=== PATIENT | male | born 1935 | race Caucasian/White ===

== ENCOUNTER → 2016-08-02 | Outpatient (CLI) | payer MEDICARE, BC ==
[2016-08-02 12:53] LABS: ABSOLUTE BASOPHILS # (AUTO) 0.1 10^3/uL (0.0-0.2); ABSOLUTE LYMPHOCYTES (AUTO) 0.8 10^3/uL (0.5-4.7); ABSOLUTE MONOCYTES (AUTO) 0.4 10^3/uL (0.1-1.4); ABSOLUTE NEUT (AUTO) 5.9 10^3/uL (1.7-8.2); BASOPHILS % (AUTO) 0.8 % (0-2); EOSINOPHILS % (AUTO) 0.2 % (0-6); HEMATOCRIT 42.6 % (37.9-51.0); HEMOGLOBIN 14.4 g/dL (13.5-17.0); HGB HCT DIFFERENCE 0.6; LYMPHOCYTES % (AUTO) 11.5 % (13-45); MEAN CORPUSCULAR HGB CONC 33.9 g/dL (32.0-36.0); MEAN CORPUSCULAR VOLUME 97 fl (80-97); RED BLOOD COUNT 4.38 10^6/uL (4.35-5.55); RED CELL DISTRIBUTION WIDTH 12.7 % (11.5-14.0); SEGMENTED NEUTROPHILS % (AUTO) 81.5 % (42-78); WHITE BLOOD COUNT 7.2 10^3/uL (4.0-10.5)
[2016-08-02 13:09] LABS: ALANINE AMINOTRANSFERASE 23 U/L (21-72); ALBUMIN 4.6 g/dL (3.5-5.0); ALKALINE PHOSPHATASE 50 U/L (38-126); ANION GAP 9 (5-19); ASPARTATE AMINO TRANSFERASE 9 U/L (17-59); BILIRUBIN,TOTAL 1.2 mg/dL (0.2-1.3); BLOOD UREA NITROGEN 12 mg/dL (7-20); CALCIUM 10.6 mg/dL (8.4-10.2); CARBON DIOXIDE 27 mmol/L (22-30); CHLORIDE 98 mmol/L (98-107); CHOLESTEROL 152.69 mg/dL (0-200); CREATININE RESULT 0.88 mg/dL (0.52-1.25); Direct HDL 71 mg/dL (>40); GLUCOSE 88 mg/dL (75-110); TOTAL PROTEIN 7.3 g/dL (6.3-8.2); TRIGLYCERIDES 74 mg/dL (<150)
[2016-08-02 13:20] LABS: DIRECT LDL 58 mg/dL (<100)
== END ==
LOC: OD 12:08
PROVIDERS: ATTEND Internal Medicine
DX: I10 Essential (primary) hypertension (principal); E78.5 Hyperlipidemia, unspecified; N40.0 Benign prostatic hyperplasia without lower urinary tract symptoms; R97.20 Elevated prostate specific antigen [PSA]; R35.1 Nocturia
CPT/HCPCS: 36415; 80053; 80061; 84153; 84443; 85025

== ENCOUNTER → 2016-12-13 | Outpatient (CLI) | payer MEDICARE, BC ==
[2016-12-13 15:09] LABS: ABSOLUTE LYMPHOCYTES (AUTO) 0.8 10^3/uL (0.5-4.7); ABSOLUTE MONOCYTES (AUTO) 0.4 10^3/uL (0.1-1.4); ABSOLUTE NEUT (AUTO) 5.2 10^3/uL (1.7-8.2); BASOPHILS % (AUTO) 0.6 % (0-2); EOSINOPHILS % (AUTO) 0.3 % (0-6); HEMATOCRIT 41.4 % (37.9-51.0); HEMOGLOBIN 14.3 g/dL (13.5-17.0); HGB HCT DIFFERENCE 1.5; LYMPHOCYTES % (AUTO) 12.7 % (13-45); MEAN CORPUSCULAR HEMOGLOBIN 32.8 pg (27.0-33.4); MEAN CORPUSCULAR HGB CONC 34.5 g/dL (32.0-36.0); MEAN CORPUSCULAR VOLUME 95 fl (80-97); MONOCYTES % (AUTO) 6.6 % (3-13); RED BLOOD COUNT 4.36 10^6/uL (4.35-5.55); RED CELL DISTRIBUTION WIDTH 12.8 % (11.5-14.0); SEGMENTED NEUTROPHILS % (AUTO) 79.8 % (42-78); WHITE BLOOD COUNT 6.6 10^3/uL (4.0-10.5)
[2016-12-13 15:22] LABS: ALANINE AMINOTRANSFERASE 17 U/L (21-72); ALBUMIN 4.6 g/dL (3.5-5.0); ALKALINE PHOSPHATASE 55 U/L (38-126); ANION GAP 11 (5-19); ASPARTATE AMINO TRANSFERASE 8 U/L (17-59); BILIRUBIN,DIRECT 0.3 mg/dL (0.0-0.4); BILIRUBIN,TOTAL 0.9 mg/dL (0.2-1.3); BLOOD UREA NITROGEN 12 mg/dL (7-20); CALCIUM 9.7 mg/dL (8.4-10.2); CARBON DIOXIDE 25 mmol/L (22-30); CHLORIDE 96 mmol/L (98-107); Direct HDL 65 mg/dL (>40); GLUCOSE 93 mg/dL (75-110); POTASSIUM 4.7 mmol/L (3.6-5.0); SODIUM 132.1 mmol/L (137-145); TOTAL PROTEIN 7.4 g/dL (6.3-8.2); TRIGLYCERIDES 51 mg/dL (<150)
[2016-12-13 15:32] LABS: DIRECT LDL 45 mg/dL (<100)
== END ==
LOC: OD 14:18
PROVIDERS: ATTEND Internal Medicine
DX: R53.82 Chronic fatigue, unspecified (principal); I10 Essential (primary) hypertension; E78.5 Hyperlipidemia, unspecified; R41.82 Altered mental status, unspecified
CPT/HCPCS: 36415; 80053; 80061; 84443; 85025

== ENCOUNTER → 2016-12-16 | Outpatient (CLI) | payer MEDICARE, BC ==
--- NOTE | 2016-12-16 13:29 | RADIOLOGY REPORT (SQ) ---
EXAM DESCRIPTION: CT HEAD WITH COMPLETED DATE/TIME: 12/16/2016 12:44 pm REASON FOR STUDY: CVA I67.89 OTHER CEREBROVASCULAR DISEASE COMPARISON: None. TECHNIQUE: Axial images acquired through the brain with intravenous contrast. Images reviewed with b one, brain and subdural windows. Images stored on PACS. All CT scanners at this facility use dose modulation, iterative reconstruction, and/or weight based d osing when appropriate to reduce radiation dose to as low as reasonably achievable (ALARA). [facility]: Dose Right [facility]: CareDose [facility]: Dose Right [facility]: Teradose 4D [facility]: [employer] CONTRAST TYPE AND DOSE: contrast/concentration: Isovue 370.00 mg/ml; Total Contrast Delivered: 50.0 ml; Total Saline Delivered: 55.0 ml RENAL FUNCTION: BUN 12 creatinine 0.9. RADIATION DOSE: Up-to-date CT equipment and radiation dose reduction techniques were employed. CTDIv ol: 49.0 mGy. DLP: 1762 mGy-cm.. LIMITATIONS: None. FINDINGS: VENTRICLES: Normal size and contour. CEREBRUM: There is a ring-enhancing soft tissue mass in the midline of the left cerebral hemisphere s uperiorly, measuring 1.4 cm. This is adjacent to the falx. There is vasogenic edema in the adjacent white matter. No hemorrhage. CEREBELLUM: No masses. No hemorrhage. No alteration of density. No evidence for acute infarction. No enhancing lesions. EXTRA-AXIAL SPACES: No fluid collections. No enhancing lesions. ORBITS AND GLOBE: No intra- or extraconal masses. Normal contour of globe without masses. CALVARIUM: No fracture. PARANASAL SINUSES: No fluid or mucosal thickening. SOFT TISSUES: No mass or hematoma. OTHER: No other significant finding. IMPRESSION: 1.4 CM RING-ENHANCING SOFT TISSUE MASS DESCRIBED WITH ASSOCIATED VASOGENIC EDEMA. TH IS IS LOCATED IMMEDIATELY ADJACENT TO THE FALX AND COULD BE A MENINGIOMA ALTHOUGH PRIMARY TUMOR OR EV EN METASTASIS WOULD BE OTHER POSSIBILITIES. MRI MAY BE HELPFUL FOR ADDITIONAL EVALUATION. TECHNICAL DOCUMENTATION: JOB ID: [id number] Quality ID # [id number]: Final reports with documentation of one or more dose reduction techniques (e.g., Au tomated exposure control, adjustment of the mA and/or kV according to patient size, use of iterative reconstruction technique) 2010 [employer]- All Rights Reserved
== END ==
LOC: RAD 11:55
PROVIDERS: ATTEND Internal Medicine
DX: I67.89 Other cerebrovascular disease (principal)
CPT/HCPCS: 70460

== ENCOUNTER → 2016-12-29 | Outpatient (CLI) | payer MEDICARE, BC ==
--- NOTE | 2016-12-29 16:59 | RADIOLOGY REPORT (SQ) ---
EXAM DESCRIPTION: MRI HEAD COMBO COMPLETED DATE/TIME: 12/29/2016 1:55 pm REASON FOR STUDY: BRAIN MASS (D49.6) D49.6 NEOPLASM OF UNSPECIFIED BEHAVIOR OF BRAIN COMPARISON: CT brain 12/16/2016 TECHNIQUE: Multiplanar imaging includes noncontrasted T1, T2, FLAIR, diffusion with ADC map and post gadolinium contrast T1 sequences. Images stored on PACS. CONTRAST TYPE AND DOSE: 15 mL Multihance. RENAL FUNCTION: GFR > 60. LIMITATIONS: None. FINDINGS: ANATOMY: No congenital anomalies. Normal vascular flow voids. Pituitary fossa normal. CSF SPACES: Normal in size and contour. No hemorrhage. 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 No adjacent brain parenchymal signal abnormalities. CEREBRUM: In the left frontal parasagittal cortex and subcortical white matter, and avidly enhancing 1.3 cm AP x 1.1 cm transverse by 1.3 cm craniocaudad cortical nodule is present with surrounding vaso genic edema and mild local mass effect. This is best shown on axial image 25 and coronal image 16. This is worrisome for a brain parenchymal metastatic lesion. An atypical invasive meningioma or prim osito brain tumor/primary glioma are possible but considered less likely. Consider CT chest abdomen an d pelvis for followup. Remainder of the brain parenchyma demonstrates minimal age-appropriate gliosis along perivascular spa lis. No MR evidence of large territory acute ischemic change, intracranial hemorrhage, or midline sh ift. POSTERIOR FOSSA: No signal alteration. No hemorrhage. No edema, masses, or mass effect. Internal esteban tory canals, cerebellopontine angles, mastoids normal. No enhancing lesions. No abnormal enhancement post contrast. DIFFUSION IMAGING: Negative for acute or subacute infarction. ORBITS: No masses. Globes normal. PARANASAL SINUSES: No fluid levels. Mucosa normal. OTHER: No other significant finding. IMPRESSION: Nodule in the senior-white junction left frontal parasagittal location, with significant s urrounding vasogenic edema. Appearance is highly suspicious for metastatic lesion. Invasive meningi mirtha or primary brain neoplasm are also possible but considered less likely. EVIDENCE OF ACUTE STROKE: NO. TECHNICAL DOCUMENTATION: JOB ID: [id number] [employer]- All Rights Reserved
== END ==
LOC: RAD 12:20
PROVIDERS: ATTEND Internal Medicine
DX: D49.6 Neoplasm of unspecified behavior of brain (principal)
CPT/HCPCS: 70553; A9577

== ENCOUNTER → 2017-01-15 | Outpatient (CLI) | payer MEDICARE, BC ==
--- NOTE | 2017-01-16 10:55 | RADIOLOGY REPORT (SQ) ---
EXAM DESCRIPTION: PET CT SKULL/THIGH COMPLETED DATE/TIME: 01/15/2017 11:28 pm REASON FOR STUDY: MALIGNANT NEOPLASM OF BRAIN C71.9 MALIGNANT NEOPLASM OF BRAIN, UNSPECIFIED COMPARISON: None. RADIONUCLIDE AND DOSE: 11.7 mCi F18 FDG The route of agent administration: Intravenous FASTING BLOOD SUGAR: 75 mg/dl CONTRAST TYPE AND DOSE: No CT contrast given. TECHNIQUE: Blood glucose level was verified. Above dose of FDG was injected intravenously. 2-D seg mented attenuation correction images were obtained from the base of the skull to the midthighs. Nonc ontrast CT images were obtained for attenuation correction and fusion with emission images. CT image s were performed without oral or intravenous contrast and are not sensitive for parenchymal lesions. A series of overlapping emission PET images were obtained. Images reviewed and manipulated at indep [employer] work station by the radiologist. Images stored on PACS. LIMITATIONS: None. FINDINGS: HEAD AND NECK: No areas of abnormal metabolic activity in the soft tissues of the head and neck. CHEST: 1.5 x 1.9 cm hypermetabolic nodule measuring about 3.1 SUV in the lingula. Increased SUV 3.0 within 1.5 cm subcarinal node. ABDOMEN AND PELVIS: No areas of abnormal metabolic activity in the abdomen or pelvis. Expected physi ologic activity is present in the genitourinary system and bowel. PROXIMAL LOWER EXTREMITIES: No areas of abnormal metabolic activity in the soft tissues of the lower extremities. BONES: Hypermetabolic lytic lesion proximal right femur measuring about 4.5 SUV. There is a defect i n the posterior cortex of about 1.5 cm and much smaller defect in the anterior femoral neck cortex. ADDITIONAL CT FINDINGS: Small left pleural effusion. Prior right nephrectomy. OTHER: No other significant findings. IMPRESSION: 1. Hypermetabolic left upper lobe nodule. 2. Hypermetabolic subcarinal node. 3. Hypermetabolic lytic lesion proximal right femur. Pathologic destruction of the cortex. No displ aced fracture. TECHNICAL DOCUMENTATION: JOB ID: [id number]- All Rights Reserved
== END ==
LOC: RAD 19:00
PROVIDERS: ATTEND Internal Medicine
DX: C71.9 Malignant neoplasm of brain, unspecified (principal)
CPT/HCPCS: 78815; A9552

== ENCOUNTER 2017-01-29 08:35 | Emergency (ER) | payer MEDICARE, BC ==
[2017-01-29] MEDS ORDERED: NORMAL SALINE 1000 ML 1,000 ML IV ONE ×2 (09:04→11:24)
[2017-01-29] MEDS ORDERED: ONDANSETRON HCL INJ/PF 4 MG/2 ML SDV IV ONE (09:08)
[2017-01-29 09:24] LABS: VENOUS BLOOD BASE EXCESS 1.9 mmol/L; VENOUS BLOOD HCO3 27.4 mmol/L (20-32); VENOUS BLOOD PCO2 45.8 mmHg (35-63); VENOUS BLOOD PH 7.39 (7.30-7.42)
[2017-01-29 09:30] LABS: ABSOLUTE BASOPHILS # (AUTO) 0.1 10^3/uL (0.0-0.2); ABSOLUTE LYMPHOCYTES (AUTO) 2.8 10^3/uL (0.5-4.7); ABSOLUTE MONOCYTES (AUTO) 0.5 10^3/uL (0.1-1.4); ABSOLUTE NEUT (AUTO) 5.9 10^3/uL (1.7-8.2); EOSINOPHILS % (AUTO) 0.4 % (0-6); HEMOGLOBIN 13.5 g/dL (13.5-17.0); HGB HCT DIFFERENCE 1.5; LYMPHOCYTES % (AUTO) 29.5 % (13-45); MEAN CORPUSCULAR HEMOGLOBIN 32.9 pg (27.0-33.4); MEAN CORPUSCULAR HGB CONC 34.6 g/dL (32.0-36.0); MEAN CORPUSCULAR VOLUME 95 fl (80-97); MONOCYTES % (AUTO) 5.8 % (3-13); RED CELL DISTRIBUTION WIDTH 13.1 % (11.5-14.0); SEGMENTED NEUTROPHILS % (AUTO) 63.3 % (42-78); WHITE BLOOD COUNT 9.4 10^3/uL (4.0-10.5)
[2017-01-29 09:32] LABS: PROTHROMBIN TIME 13.8 SEC (11.4-15.4)
[2017-01-29 09:45] LABS: ALANINE AMINOTRANSFERASE 17 U/L (21-72); ALBUMIN 3.4 g/dL (3.5-5.0); ALKALINE PHOSPHATASE 66 U/L (38-126); ANION GAP 8 (5-19); ASPARTATE AMINO TRANSFERASE 10 U/L (17-59); BILIRUBIN,DIRECT 0.3 mg/dL (0.0-0.4); BILIRUBIN,TOTAL 0.8 mg/dL (0.2-1.3); BLOOD UREA NITROGEN 13 mg/dL (7-20); CALCIUM 9.6 mg/dL (8.4-10.2); CARBON DIOXIDE 26 mmol/L (22-30); CHLORIDE 104 mmol/L (98-107); CREATININE RESULT 0.82 mg/dL (0.52-1.25); GLUCOSE 137 mg/dL (75-110); MAGNESIUM 2.2 mg/dL (1.6-2.3); SODIUM 137.5 mmol/L (137-145); TOTAL PROTEIN 5.8 g/dL (6.3-8.2)
[2017-01-29 09:47] LABS: CREATINE KINASE < 20 U/L (55-170)
--- NOTE | 2017-01-29 10:21 | RADIOLOGY REPORT (SQ) ---
EXAM DESCRIPTION: CT HEAD WITHOUT COMPLETED DATE/TIME: 01/29/2017 10:01 am REASON FOR STUDY: bed [address] mackey s/p fall COMPARISON: 12/16/2016. 12/29/2016 MRI TECHNIQUE: Axial images acquired through the brain without intravenous contrast. Images reviewed wi th bone, brain and subdural windows. Images stored on PACS. All CT scanners at this facility use dose modulation, iterative reconstruction, and/or weight based d osing when appropriate to reduce radiation dose to as low as reasonably achievable (ALARA). [facility]: Dose Right [facility]: CareDose [facility]: Dose Right [facility]: Teradose 4D [facility]: [employer] RADIATION DOSE: Up-to-date CT equipment and radiation dose reduction techniques were employed. CTDIv ol: 64.6 mGy. DLP: 1163 mGy-cm. mGy. LIMITATIONS: None. FINDINGS: VENTRICLES: Similar caliber to priors. There is intraventricular hemorrhage in the latera l ventricles left greater than right as well as in the 3rd and 4th ventricles. CEREBRUM: Left frontal parenchymal hematoma, likely related to pre-existing mass. Hematoma measures up to 3.5 cm with patchy adjacent trace subdural and subarachnoid blood along the falx. Rupture into the ventricles as above. Regional white matter edema. Approximately 6 mm of shift. CEREBELLUM: No cerebellar lesions identified. 4th ventricular hemorrhage as above. ORBITS AND GLOBE: No intra- or extraconal masses. Normal contour of globe without masses. CALVARIUM: No fracture. PARANASAL SINUSES: No fluid or mucosal thickening. SOFT TISSUES: No mass or hematoma. OTHER: No other significant finding. IMPRESSION: 1. Left frontal parenchymal acute hemorrhage, apparently related to pre-existing lesion here. Associated mild midline shift with intraventricular hemorrhage ; no overt hydrocephalus curren tly. Pertinent findings on the imaging study reported as a CRITICAL RESULT to WENCESLAO MACKEY DO at10:14 on 01/29/2017. Category of Critical Result: Intracranial hemorrhage. COMMENT: Quality ID # 436: Final reports with documentation of one or more dose reduction techniques (e.g., Automated exposure control, adjustment of the mA and/or kV according to patient size, use of iterative reconstruction technique) TECHNICAL DOCUMENTATION: JOB ID: [id number]- All Rights Reserved
--- NOTE | 2017-01-29 10:23 | RADIOLOGY REPORT (SQ) ---
EXAM DESCRIPTION: CT CERVICAL SPINE WITHOUT COMPLETED DATE/TIME: 01/29/2017 10:05 am REASON FOR STUDY: bed [address] mackey s/p fall COMPARISON: None. TECHNIQUE: Axial images acquired through the cervical spine without intravenous contrast. Images re viewed with lung, soft tissue and bone windows. Reconstructed coronal and sagittal MPR images review ed. Images stored on PACS. All CT scanners at this facility use dose modulation, iterative reconstruction, and/or weight based d osing when appropriate to reduce radiation dose to as low as reasonably achievable (ALARA). [facility]: Dose Right [facility]: CareDose [facility]: Dose Right [facility]: Teradose 4D [facility]: [employer] RADIATION DOSE: Up-to-date CT equipment and radiation dose reduction techniques were employed. CTDIv ol: 15.8 mGy. DLP: 345 mGy-cm. mGy. LIMITATIONS: None. FINDINGS: ALIGNMENT: Anatomic. MINERALIZATION: Normal. VERTEBRAL BODIES: No fractures or dislocation. DISCS: Mild lower cervical disc disease with small osteophytes. FACETS, LATERAL MASSES, POSTERIOR ELEMENTS: No fractures. No dislocation. No acute findings. HARDWARE: None in the spine. VISUALIZED RIBS: No fractures. LUNG APICES AND SOFT TISSUES: Large left pleural effusion, incompletely assessed. Apical emphysema. Mild dependent debris in the esophagus. OTHER: 4th ventricular hemorrhage, see separately dictated brain CT from same date. IMPRESSION: No cervical spine fracture or malalignment or gross bone lesion. Spondylosis. TECHNICAL DOCUMENTATION: JOB ID: [id number] Quality ID # [id number]: Final reports with documentation of one or more dose reduction techniques (e.g., Au tomated exposure control, adjustment of the mA and/or kV according to patient size, use of iterative reconstruction technique) 2010 [employer]- All Rights Reserved
--- NOTE | 2017-01-29 10:30 | ER Document Report ---
ED General - General Chief Complaint: Fall Stated Complaint: FALL/ALTERED MENTAL STATUS Time Seen by Provider: 01/29/17 08:43 TRAVEL OUTSIDE OF THE [place] IN LAST 30 DAYS: No - HPI Patient complains to provider of: Fall Notes: Patient presents today for altered mental status and fall. According to the patient apparently try to get to the bathroom when she heard him fell. Patient was found by EMS patient had no verbal response however spontaneous eye opening was moving his right extremities. According to the at bedside patient has a history of cancer has a history of bone cancer in 1 of his femurs he supposed to have replaced the upcoming week. also states that the patient may or may not have cancer with his brain. Patient's states that orthopedics is Dr. Montalvo oncologist is Dr. Mcrae. Upon my evaluation patient has stable vital signs with oxygen nasal cannula at 2 L his eyes are open patient is nonverbal will not give her verbal response other than intermittent moaning patient is moving his right leg. According to the at bedside the patient is not a DNR. - Related Data Allergies/Adverse Reactions: No Known Allergies Allergy (Unverified 12/19/13 14:24) Past Medical History - Social History Smoking Status: Never Smoker Chew tobacco use (# tins/day): No Frequency of alcohol use: None Drug Abuse: None Family History: Reviewed & Not Pertinent - Past Medical History Cardiac Medical History: Reports: Hx Hypertension - CONTROLLED WITH MEDS Denies: Hx Heart Attack Pulmonary Medical History: Denies: Hx Asthma Neurological Medical History: Denies: Hx Cerebrovascular Accident, Hx Seizures GI Medical History: Denies: Hx Hepatitis, Hx Hiatal Hernia, Hx Ulcer Infectious Medical History: Denies: Hx Hepatitis Past Surgical History: Denies: Hx Open Heart Surgery, Hx Pacemaker Review of Systems - Review of Systems -: Yes ROS unobtainable due to patient's medical condition - Altered mental state Physical Exam - Vital signs Vitals: Resp 16 01/29/17 08:35 Interpretation: Normal - General General appearance: Alert, Other - Patient is tracking around the room with his eyes - HEENT Head: Normocephalic, Atraumatic Eyes: Normal Pupils: PERRL Neck: Normal - Respiratory Respiratory status: No respiratory distress Chest status: Nontender Breath sounds: Rales, Rhonchi - There Chest palpation: Normal - Cardiovascular Rhythm: Regular - may Heart sounds: Normal auscultation Murmur: No - Abdominal Inspection: Normal Distension: No distension Bowel sounds: Normal Tenderness: Nontender Organomegaly: No organomegaly - Extremities General upper extremity: Normal inspection, Nontender General lower extremity: Normal inspection, Nontender - Neurological Neuro grossly intact: Yes [place] Coma Scale Eye Opening: Spontaneous Ericka Coma Scale Verbal: Incomprehensible [place] Coma Scale Motor: Withdraws to Pain Ericka Coma Scale Total: 10 Cranial nerves: Other - Patient does look to have right facial drooping Babinski reflex: Normal (flexor plantar) - Skin Skin Temperature: Warm Skin Moisture: Dry Skin Color: Normal Course - Re-evaluation Re-evalutation: 01/29/17 11:34 Patient coming in for evaluation after a fall. The patient's history of intracranial mass concerning for intracranial bleed causing the patient's altered mental status. CT scan was ordered. [address] [place] [address] radiology team patient does have obvious intracranial hemorrhage which did discuss the findings with the radiologist. Slight shift by approximately 5 mm. Patient GCS upon initial evaluation and subsequent evaluations has remained stable from 11-10 being very suture of withdrawing the pain to localizing to pain. At this time patient seems to be maintaining his airway and did not feel that intubation is required at this time. I did have a long discussion with and son at bedside explained to them that more likely this is a serious event and could lead to the patient's . Family is requesting patient to be considered a full code and does request mechanical ventilation if necessary and CPR. I did explain that we will would continue to monitor his mental state if GCS lowers we will have to put the patient on a ventilator. However patient continues to remain stable with a GCS of 10-11. Discussed with trauma team at [facility] (per family request transfer to [facility]) discussed with Dr. Michael agreed to set the patient as trauma transfer. Chest x-ray findings do seem to correlate with a pleural effusion no white count no signs of pneumonia this time. Currently waiting on transport 01/29/17 13:27 Transport a while patient is GCS still remains between 10 and 11. Do not feel that there is any need to intubate the patient at this time area still remains intact. - Vital Signs Vital signs: Temp Pulse Resp BP Pulse Ox 97.5 F 22 H 127/60 H 99 01/29/17 11:21 01/29/17 11:31 01/29/17 11:31 01/29/17 11:31 - Laboratory Result Diagrams: 01/29/17 08:59 01/29/17 08:59 Laboratory results interpreted by me: 01/29/17 01/29/17 01/29/17 08:59 08:59 10:35 RBC 4.10 L Glucose 137 H AST 10 L ALT 17 L Creatine Kinase < 20 L Total Protein 5.8 L Albumin 3.4 L Lipase 334.0 H Urine Ketones TRACE H Urine Urobilinogen 2.0 H Urine Ascorbic Acid 40 H Critical Care Note - Critical Care Note Total time excluding time spent on procedures (mins): 60 Comments: Multiple evaluation the patient with intracranial hemorrhage. Discharge - Discharge Clinical Impression: Intracranial hemorrhage, Intracranial mass, Metastatic bone cancer, Chronic pleural effusion Altered mental state Qualifiers: Coma depth: [place] coma 9-12 Condition: Poor Disposition: [facility] Referrals: SANDOVAL BOWIE MD [Primary Care Provider] - Follow up as needed
[2017-01-29 10:34] LABS: CREATINE KINASE MB < 0.22 ng/mL (<4.55); TROPONIN I < 0.012 ng/mL
--- NOTE | 2017-01-29 10:35 | RADIOLOGY REPORT (SQ) ---
EXAM DESCRIPTION: CHEST PA/LAT COMPLETED DATE/TIME: 01/29/2017 10:03 am REASON FOR STUDY: bed 17 sepsis protocol COMPARISON: 2009. PET-CT from 01/15/2017. TECHNIQUE: Frontal and lateral radiographic views of the chest acquired. NUMBER OF VIEWS: Two view. LIMITATIONS: None. FINDINGS: LUNGS AND PLEURA: Opacification of the lower 2/3 of the left hemithorax. [facility] demonstrates sizable pleural effusion and associated airspace disease. No pneumothorax. Right lung clear. MEDIASTINUM AND HILAR STRUCTURES: Grossly stable contours. HEART AND VASCULAR STRUCTURES: Partially obscured by left lung density, grossly stable. BONES: No acute findings. HARDWARE: None in the chest. OTHER: No other significant finding. IMPRESSION: Left lung opacity, known pleural effusion and airspace disease. No pneumothorax or monica s fracture. TECHNICAL DOCUMENTATION: JOB ID: [id number] [employer]- All Rights Reserved
--- NOTE | 2017-01-29 10:38 | RADIOLOGY REPORT (SQ) ---
EXAM DESCRIPTION: FEMUR RIGHT COMPLETED DATE/TIME: 01/29/2017 10:03 am REASON FOR STUDY: eval fracture COMPARISON: PET-CT from 01/15/2017. NUMBER OF VIEWS: Two views, total of 4 images of the right femur. LIMITATIONS: None. FINDINGS: Destructive ill marginated lesion in the sub trochanteric proximal right femur. Rarefacti on of anterior and posterior cortices with mild aggressive appearing periosteal new bone formation ex tending inferiorly. Consistent with malignancy, patient with known lesion here on recent PET study. No associated displaced fracture. OTHER: No other significant finding. IMPRESSION: Known proximal right femur metastatic lesion as above. No displaced associated patholog ic fracture, however there is breech of the cortices as above, particularly posteriorly. Patient at risk for fracture. TECHNICAL DOCUMENTATION: JOB ID: [id number]
[2017-01-29] MEDS ORDERED: DEXAMETHASONE SOD PHOS INJ 10 MG/1 ML VIAL IV ONE (10:47)
[2017-01-29] MEDS ORDERED: LEVETIRACETAM 1000 MG/NACL-ISO 1,000 MG/100 ML RTUPB IV ONE (10:47)
[2017-01-29 10:58] LABS: AMORPHOUS SEDIMENT,URINE TRACE /HPF; APPEARANCE,URINE SLIGHTLY-CLOUDY; BILIRUBIN,URINE NEGATIVE (NEGATIVE); GLUCOSE, URINE NEGATIVE (NEGATIVE); KETONES,URINE TRACE mg/dL (NEGATIVE); LEUKOCYTE ESTERASE,URINE NEGATIVE (NEGATIVE); NITRITE,URINE NEGATIVE (NEGATIVE); PROTEIN,URINE NEGATIVE (NEGATIVE); URINE SPECIFIC GRAVITY 1.013
[2017-01-29 11:44] VITALS: BP 127/60
--- NOTE | 2017-01-29 16:03 | EKG REPORT ---
SEVERITY:- NORMAL ECG - SINUS RHYTHM : Confirmed by: Jose L Odell MD 29-Jan-2017 16:02:12
== END 2017-01-29 12:00 | disposition short-term general hospital (02) ==
LOC: ER 08:35
DX: R41.82 Altered mental status, unspecified (principal); I62.9 Nontraumatic intracranial hemorrhage, unspecified; G93.9 Disorder of brain, unspecified; C79.51 Secondary malignant neoplasm of bone; J90 Pleural effusion, not elsewhere classified; W18.30XA Fall on same level, unspecified, initial encounter; Y92.009 Unspecified place in unspecified non-institutional (private) residence as the place of occurrence of the external cause; Z66 Do not resuscitate; I10 Essential (primary) hypertension
CPT/HCPCS: 93005; 99285; 96361; 51702; 96375; 96365; 36415; 87040; 87086; 82553; 82962; 82550; 83690; 83735; 85025; 85610; 80053; 81001; 84484; 82803; 83605; 71020; 73552; 70450; 72125; 93010; J2405; J7030; J1100; J1953